=== PATIENT | male | born 2000 | race Two or more races ===

== ENCOUNTER → 2025-03-30 | Outpatient (CLI) | payer SELFPAY ==
[2025-03-30 11:14] LABS: Motl CLS 1 40
[2025-03-30 11:25] LABS: % Variance 9 %; % Variance Motility 20 %; Count Side 1 22; Count Side 2 20; Motl CLS 2 50; Room Temperature 24 (20-27C (Area)); Sperm Count 21 Million (20-50); Sperm Motility 45 % (>=50)
== END | disposition home or self-care (01) ==
LOC: COPL 09:51
PROVIDERS: PCP Physician Assistant
DX: Z31.41 Encounter for fertility testing (principal)
CPT/HCPCS: 89310